=== PATIENT | male | born 1945 | race Caucasian/White ===

== ENCOUNTER 2019-01-12 10:44 | Outpatient (CLI) | payer MEDICARE, OTHER ==
--- NOTE | 2019-01-12 13:48 | RAD ---
XR UGI Air Con W/Small Bowel History: [Diaphragmatic hernia] Comparison: Chest radiograph December 23, 2016 Findings: Patient was initially given gas-forming crystals. Patient tolerated this well. Patient was given thick liquid contrast. There is abnormal elevation of the GE junction into the thor acic cavity. There is an associated paraesophageal hernia as well as organoaxial volvulus with rotation of the stomach around its longitudinal axis. There is no evidence of obstruction. Ingested contrast extends into the small bowel quickly. Normal proximal small bowel dilatation. No ev idence for obstructing mass. In the AMADO position there is extensive reflux contrast to the proximal one third esophagus. Impression: 1. Large paraesophageal hernia with organoaxial volvulus which did decompress into the abdominal cavi ty with ingestion of contrast. After contrast had passed through the stomach into the small bowel, the stomach did elevated back into the thoracic cavity. 2. Reflux of contrast into the proximal one third esophagus in the AMADO position.
== END 2019-01-12 10:45 | disposition home or self-care (01) ==
LOC: RAD 10:44
PROVIDERS: ATTEND Internal Medicine
DX: K44.9 Diaphragmatic hernia without obstruction or gangrene (principal); K56.2 Volvulus
CPT/HCPCS: 74249

== ENCOUNTER 2019-03-21 08:13 | Outpatient (CLI) | payer MEDICARE, OTHER ==
--- NOTE | 2019-03-21 12:05 | CT ---
CT ABDOMEN AND PELVIS WITH IV CONTRAST: 03/21/2019 PROVIDED CLINICAL HISTORY: Upper abdominal pain. Hiatal hernia. FINDINGS: The visualized lung bases are free of significant opacity. There is a large hiatal hernia, containin g the majority of the stomach, the visualized portions of which appear nondilated. The liver, spleen, pancreas, kidneys, and adrenal glands demonstrate no significant abnormality. Sim ple appearing renal and hepatic cysts are seen. There is no bowel dilatation, inflammatory fat stranding, free fluid, or lymph node enlargement appar ent. Vascular calcifications are noted. The appendix appears normal. The osseous structures demonstrate no concerning osteoblastic or osteolytic lesions. IMPRESSION: 1. Large hiatal hernia. 2. Atherosclerosis. POS: C
== END 2019-03-21 08:14 | disposition home or self-care (01) ==
LOC: BICCT 08:13
PROVIDERS: ATTEND Internal Medicine
DX: K44.9 Diaphragmatic hernia without obstruction or gangrene (principal)
CPT/HCPCS: 74177; 82565

== ENCOUNTER 2019-04-24 11:36 | Outpatient (CLI) | payer MEDICARE, OTHER ==
[2019-04-24 12:44] LABS: #Eosinphils 0.4 thou/uL (0.0-0.7); #Lymphocytes 1.7 thou/uL (1.20-3.40); #Monocytes 0.5 thou/uL (0.11-0.59); #Neutrophils 5.2 thou/uL (1.40-6.50); %Basophils 0.4 % (0.0-1.0); %Eosinophils 4.6 % (0.0-10.0); Hemoglobin 14.9 g/dL (14.0-18.0); Mean Corpuscular HGB CONC 33.4 g/dL (32.0-36.0); Mean Corpuscular Hemoglobin 32.8 pg (27.0-31.0); Mean Corpuscular Volume 98.1 fL (78.0-98.0); Mean Platelet Volume 7.6 fL (7.4-10.4); Platelet Count 196 thou/uL (130-400); RBC Distribution Width 11.4 % (11.5-14.5); Red Blood Cell (RBC) Count 4.53 mill/uL (4.70-6.10); White Blood Cell (WBC) Count 7.8 thou/uL (4.8-10.8)
[2019-04-24 13:05] LABS: Anion Gap 14 mmol/L (10-20); BUN (Urea Nitrogen) 25 mg/dL (8.4-25.7); Calc. Creatinine Clearance 0 mL/min (70-130); Carbon Dioxide 22 mmol/L (23-31); Chloride 102 mmol/L (98-107); Estimated GFR-MDRD 77; Glucose 89 mg/dL (83-110); Potassium 4.8 mmol/L (3.5-5.1); Sodium 133 mmol/L (136-145)
== END 2019-04-24 11:37 | disposition home or self-care (01) ==
LOC: LABBT 11:36
PROVIDERS: ATTEND Surgery
DX: Z01.818 Encounter for other preprocedural examination (principal); K44.9 Diaphragmatic hernia without obstruction or gangrene
CPT/HCPCS: 80048; 85025; 93005; 93010

== ENCOUNTER 2019-04-25 05:47 | Observation (INO) | payer MEDICARE, OTHER ==
[2019-04-24 11:49] VITALS: BMI 25.0
[2019-04-25] MEDS ORDERED: ceFAZolin Sodium (SDC) 2 GM/100 ML BAG ONE (06:06)
[2019-04-25] MEDS ORDERED: Bupivacaine/Epinephrine 0.25% 30 ML VIAL ONE (06:40)
[2019-04-25] MEDS ORDERED: Fentanyl 100 MCG/2 ML VIAL ONE (06:55)
[2019-04-25] MEDS ORDERED: Ondansetron HCl/PF 4 MG/2 ML Vial IVP PRN (09:49)
[2019-04-25] MEDS ORDERED: Dextrose 50% Abboject 50 ML SYRINGE SLOW IVP PRN (09:56)
[2019-04-25] MEDS ORDERED: Dextrose 5% in Water 1,000 ML IV PRN (09:56)
[2019-04-25] MEDS ORDERED: Morphine 4 MG/ML VIAL SLOW IVP PRN (09:56)
[2019-04-25] MEDS ORDERED: Promethazine HCl 25 MG/ML VIAL IM PRN (09:56)
[2019-04-25] MEDS ORDERED: Ondansetron PF 4 MG/2 ML Vial IVP PRN (09:56)
[2019-04-25] MEDS ORDERED: hydrALAZINE 20 MG/ML VIAL SLOW IVP PRN (09:56)
[2019-04-25] MEDS ORDERED: Acetaminophen 1,000 MG in Premix Bag 1 BAG IVPB PRN (10:00)
[2019-04-25] MEDS ORDERED: Morphine 2 MG/ML SYRINGE SLOW IVP PRN (10:13)
--- NOTE | 2019-04-25 10:46 | OP ---
DATE OF PROCEDURE: 04/25/2019 PREOPERATIVE DIAGNOSIS: Paraesophageal hiatal hernia. POSTOPERATIVE DIAGNOSIS: Paraesophageal hiatal hernia. PROCEDURE PERFORMED: 1. Laparoscopic hiatal hernia repair with mesh (Strattice) with fundoplication. 2. Esophagogastroduodenoscopy. ANESTHESIA: General. ESTIMATED BLOOD LOSS: 50 mL. COMPLICATIONS: None. SPECIMEN: None. FINDINGS: Normal postoperative EGD. DESCRIPTION OF PROCEDURE: The patient was taken to the operating room and laid supine on the operating room table. After general anesthetic was obtained, the patient was placed in the split leg apposition, and arms and legs were double strapped to the table. OG tube was used to decompress the stomach. The abdomen was prepped and draped in a sterile fashion. Left subcostal 5 mm Optiview trocar was placed in usual fashion and high-flow pneumoperitoneum was obtained. A 5 mm incision was made just above the umbilicus, 5 mm incision was made just to the right of the xiphoid, and two 5 mm incisions were made in the lower abdomen in the right and the left. The liver retractor, Snake, was brought out through the right lower quadrant and used to raise the liver off the GE junction, exposing the hiatal hernia, the bare area. The gastrohepatic ligament was opened. There was no replaced right hepatic artery. Dissection was performed up to the right guerda of the diaphragm and the mediastinum was entered just medial to the right guerda. Circumferential dissection of the esophagus was then performed. The upper third of the stomach was herniated up into the chest. The stomach was flipped over and the short gastrics were taken down from the upper third of the stomach to the left guerda of diaphragm. The left guerda was completely dissected. Circumferential dissection of the esophagus was performed allowing the GE junction to be brought back into the abdominal cavity. There was a large diaphragmatic defect. A 48 bougie was brought in and its tip left in the antrum of the stomach. A [place] was wrapped around the GE junction and held in place using a PDS Endoloop and used for retraction. The posterior fascia was closed using 2 interrupted Ethibond sutures. It appeared that the diaphragmatic closure was not too tight. The posterior fundus was able to be placed posterior to the GE junction and a fundoplication was performed 360-degree. A loose wrap was formed by a suturing using Ethibond in the tie knot system from the residual fundus of the stomach on the left to the wrapped stomach on the right. Care was taken to avoid making sure the stomach was not twisted. In the middle stitch, a small bite of the esophageal wall was taken to avoid to a slipped fundoplication. Three sutures were used for the wrap. Next, a Strattice mesh was brought in and prepared in the usual fashion. It was cut to 4 x 4 cm with a V down the middle, it was placed in the abdomen and placed posterior over the posterior repair. Tisseel and the Tissomat were used to glue it to the posterior fascia. The bougie was removed and EGD scope was passed from the esophagus stomach to the level of the duodenum without obstruction. There was no evidence of injury to the esophagus or stomach. There was no evidence of too significant of the stenosis at the hiatus or at the wrap. EGD scope was used to decompress the stomach, it was pulled and removed. The liver retractor was removed. All port sites were infiltrated using local anesthetic. All ports were removed under camera visualization without bleeding. Pneumoperitoneum was let down. A 4-0 Monocryl and Dermabond used to close all skin incisions. The patient was sent to Recovery in stable condition. All instrument counts, needle counts, and lap counts were correct. Job ID: [id number]
[2019-04-25] MEDS: D5 1/2 NS w/20 mEq KCL 1,000 ML IV SCH (12:19)
[2019-04-25] MEDS ORDERED: Enoxaparin Sodium 40 MG/0.4 ML SYRINGE SC SCH (21:00)
[2019-04-26 03:26] VITALS: TEMP 98.4
[2019-04-26] MEDS: D5 1/2 NS w/20 mEq KCL 1,000 ML IV SCH (04:49)
[2019-04-26 05:22] LABS: #Eosinphils 0.1 thou/uL (0.0-0.7); #Lymphocytes 1.1 thou/uL (1.20-3.40); #Monocytes 0.6 thou/uL (0.11-0.59); #Neutrophils 8.5 thou/uL (1.40-6.50); %Basophils 0.1 % (0.0-1.0); %Eosinophils 0.5 % (0.0-10.0); %Lymphocytes 10.7 % (21.0-51.0); %Monocytes 5.6 % (0.0-10.0); %Neutrophils 83.2 % (42.0-75.0); Hemoglobin 12.9 g/dL (14.0-18.0); Mean Corpuscular HGB CONC 33.3 g/dL (32.0-36.0); Mean Corpuscular Hemoglobin 32.7 pg (27.0-31.0); Mean Corpuscular Volume 98.4 fL (78.0-98.0); Mean Platelet Volume 7.3 fL (7.4-10.4); Platelet Count 140 thou/uL (130-400); RBC Distribution Width 11.3 % (11.5-14.5); Red Blood Cell (RBC) Count 3.94 mill/uL (4.70-6.10); White Blood Cell (WBC) Count 10.2 thou/uL (4.8-10.8)
[2019-04-26 05:44] LABS: Anion Gap 8 mmol/L (10-20); BUN (Urea Nitrogen) 18 mg/dL (8.4-25.7); Calc. Creatinine Clearance 79 mL/min (70-130); Calcium 9.3 mg/dL (7.8-10.44); Carbon Dioxide 29 mmol/L (23-31); Chloride 104 mmol/L (98-107); Estimated GFR-MDRD 83; Glucose 115 mg/dL (83-110); Potassium 4.6 mmol/L (3.5-5.1); Sodium 136 mmol/L (136-145)
[2019-04-26 07:26] VITALS: BP 129/58
[2019-04-26] MEDS ORDERED: Prevnar 13-Val Conj/PF 0.5 ML SYRINGE IM ONE (09:00)
[2019-04-26] MEDS ORDERED: Pantoprazole 40 MG VIAL IVP SCH (09:00)
[2019-04-26] MEDS ORDERED: Ramipril 5 MG CAP PO SCH (09:00)
--- NOTE | 2019-04-26 22:24 | DIS ---
DATE OF ADMISSION: 04/25/2019 DATE OF DISCHARGE: 04/26/2019 ADMITTING DIAGNOSIS: Paraesophageal hiatal hernia. DISCHARGE DIAGNOSES: Paraesophageal hiatal hernia. PROCEDURES: Laparoscopic hiatal hernia repair with mesh by Dr. Romero without complication. CONDITION ON DISCHARGE: Improved. STAFF: Lukas Romero MD HOSPITAL COURSE: The patient did well postop. On postop day #1, he is tolerating a liquid diet. He is discharged home to continue all his home medicines. He will be on a liquid diet through the weekend. He can start a casserole soft diet next week if tolerating the liquids well. He will continue his [id number] PPI at home and follow up with me in 2 weeks. Job ID: [id number]
== END 2019-04-26 09:46 | disposition home or self-care (01) ==
LOC: SDC 05:47 → SURG A 09:56
PROVIDERS: ADMIT Surgery; ATTEND Surgery
PROC: 0BUT4JZ Supplement Diaphragm with Synthetic Substitute, Percutaneous Endoscopic Approach (ICD-10-PCS; principal; 2019-04-25)
PROC: 0DV44ZZ Restriction of Esophagogastric Junction, Percutaneous Endoscopic Approach (ICD-10-PCS; 2019-04-25)
DX: K44.9 Diaphragmatic hernia without obstruction or gangrene (principal); I10 Essential (primary) hypertension; K21.9 Gastro-esophageal reflux disease without esophagitis; Z87.891 Personal history of nicotine dependence; Z79.82 Long term (current) use of aspirin; Z79.899 Other long term (current) drug therapy
CPT/HCPCS: 43282; 80048; 85025; 96361 ×2; 96374; 96375 ×2; G0378 ×2; Q4130; 36415; C9113; J0131; J0690; J1650; J3010